=== PATIENT | female | born 1945 | race Hispanic/Latino ===

== ENCOUNTER 2018-06-30 12:12 | Emergency (ER) | payer SELFPAY ==
[2018-06-30 12:26] VITALS: RESP 18
[2018-06-30 13:10] LABS: URINE BILIRUBIN NEGATIVE (NEGATIVE); URINE BLOOD SMALL (NEGATIVE); URINE GLUCOSE (UA) 500 mg/dL (NEGATIVE); URINE LEUKOCYTE ESTERASE NEGATIVE Leu/uL (NEGATIVE); URINE PROTEIN TRACE mg/dL (<30 mg/dL)
[2018-06-30 13:11] LABS: BASO # 0.02 K/mm3 (0.0-2.0); BASO % 0.2 % (0.0-3.0); EOS % 0.4 % (1.5-5.0); HEMOGLOBIN 13.9 g/dL (12.0-16.0); LYMPH # 1.7 (1.2-3.4); LYMPH % 15.4 % (22.0-35.0); MEAN CORPUSCULAR HEMOGLOBIN 30.1 pg (25.0-35.0); MEAN CORPUSCULAR HGB CONC 33.8 g/dl (31.0-37.0); MONO # 0.5 (0.1-0.6); MONO % 4.8 % (1.0-6.0); RBC 4.62 10^6/uL (3.5-6.1); RED CELL DISTRIBUTION WIDTH 12.2 % (11.5-14.5); URINE COLOR YELLOW (YELLOW); WHITE BLOOD COUNT 11.1 10^3/uL (4.5-11.0)
--- NOTE | 2018-06-30 13:11 | ED PDOC ---
Arrival/HPI - General Chief Complaint: Abdominal Pain Time Seen by Provider: 06/30/18 12:35 Historian: Patient - History of Present Illness Narrative History of Present Illness (Text): 06/30/18 13:08 A 73 year old female, whose past medical history includes hypertension, recurring UTI, and hysterectomy, presents to the emergency department complaining of nausea, abdominal pain, and 2 episodes of vomiting starting this morning. Patient reports she went to [facility] and had Urinalysis performed, showing high glucose in urine, and fingerstick measurement performed there showed to be 301. Here in the ER, her fingerstick is currently 240 and still experiences nausea and has weakness. Patient denies any other complaints at this time. Time/Duration: Other (starting this morning) Symptom Onset: Sudden Symptom Course: Unchanged Past Medical History - Provider Review Nursing Documentation Reviewed: Yes - Travel History If Yes, travel location?: [facility] a month ago - Infectious Disease Hx of Infectious Diseases: None - Reproductive Menopause: No - Cardiac Hx Hypertension: Yes - Pulmonary Other/Comment: hysterectomy - Neurological Hx Neurological Disorder: No Hx Alzheimer's Disease: No - HEENT Hx HEENT Disorder: No - Renal Hx Renal Disorder: No Hx Dialysis: No - Endocrine/Metabolic Hx Endocrine Disorders: No - Hematological/Oncological Hx Blood Disorders: No - Genitourinary/Gynecological Hx Genitourinary Disorders: No - Psychiatric Hx Psychophysiologic Disorder: No Hx Substance Use: No Family/Social History - Physician Review Nursing Documentation Reviewed: Yes Family/Social History: No Known Family HX Smoking Status: Never Smoked Hx Alcohol Use: No Hx Substance Use: No Allergies/Home Meds Allergies/Adverse Reactions: Allergies No Known Allergies Allergy (Verified 06/30/18 12:46) Review of Systems - Physician Review All systems were reviewed & negative as marked: Yes - Review of Systems Constitutional: absent: Night Sweats Gastrointestinal: Abdominal Pain, Nausea, Vomiting (2 episodes) Physical Exam Vital Signs Reviewed: Yes Vital Signs Temp Pulse Resp BP Pulse Ox 06/30/18 12:20 98.7 F 89 18 144/81 98 06/30/18 12:13 85 18 97 Pulse: Regular Respiratory Rate: Normal Appearance: Positive for: Well-Appearing, Non-Toxic, Comfortable Pain Distress: None Mental Status: Positive for: Alert and Oriented X 3 - Systems Exam Head: Present: Atraumatic, Normocephalic Pupils: Present: PERRL Extroacular Muscles: Present: EOMI Conjunctiva: Present: Normal Mouth: Present: Moist Mucous Membranes Neck: Present: Normal Range of Motion. No: JVD Respiratory/Chest: Present: Clear to Auscultation, Good Air Exchange. No: Respiratory Distress, Accessory Muscle Use Cardiovascular: Present: Regular Rate and Rhythm, Normal S1, S2. No: Murmurs Abdomen: Present: Tenderness (bilateral lower quadrant tenderness). No: Distention, Peritoneal Signs Back: Present: Normal Inspection Upper Extremity: Present: Normal Inspection. No: Cyanosis, Edema Lower Extremity: Present: Normal Inspection. No: Edema Neurological: Present: GCS=15, CN II-XII Intact, Speech Normal Skin: Present: Warm, Dry, Normal Color. No: Rashes Psychiatric: Present: Alert, Oriented x 3, Normal Insight, Normal Concentration Medical Decision Making ED Course and Treatment: 06/30/18 13:11 Impression: 73 year old female with nausea, abdominal pain, and 2 episodes of vomiting. Differential Diagnoses: Abdominal pain rule out UTI vs. Diverticulitis vs. Abscess. Plan: -- Labs -- EKG -- IV Fluids -- Pepcid -- Zofran -- Abd/Pelvis CT Progress Notes: EKG shows to be 92 BPM at NSR with normal access. Progress note: The pt is feeling better and all labs and ct abd/pelvis are unremarkable. Pt can be discharged home. will follow up with her pcp. - Lab Interpretations I have reviewed the lab results: Yes - RAD Interpretation Radiology Orders: 06/30/18 12:46 ABD PELVIS PO & IV CONTRAST [CT] Stat - Medication Orders Current Medication Orders: Ondansetron HCl (Zofran Inj) 4 mg IVP STAT STA Stop: 06/30/18 13:07 Discontinued Medications Famotidine (Pepcid) 20 mg IVP STAT STA Stop: 06/30/18 12:47 - Scribe Statement The provider has reviewed the documentation as recorded by the Scribrodrigo Carballo All medical record entries made by the Scribe were at my direction and personally dictated by me. I have reviewed the chart and agree that the record accurately reflects my personal performance of the history, physical exam, medical decision making, and the department course for this patient. I have also personally directed, reviewed, and agree with the discharge instructions and disposition. Disposition/Present on Arrival - Present on Arrival Any Indicators Present on Arrival: No History of DVT/PE: No History of Uncontrolled Diabetes: No Urinary Catheter: No History of Decub. Ulcer: No History Surgical Site Infection Following: None - Disposition Have Diagnosis and Disposition been Completed?: Yes Diagnosis: Abdominal pain Disposition: HOME/ ROUTINE Disposition Time: 16:21 Patient Problems: Current Active Problems Problem Status Onset Abdominal pain Acute Condition: GOOD Additional Instructions: Follow up with your pcp in a few days and tylenol for pain. Prescriptions: Acetaminophen [Tylenol] 650 mg PO Q4 #15 capsule Referrals: [facility] at [facility] [Outside] - Follow up with primary [facility] at [facility] [Outside] - Follow up with primary [facility] at [place] [Outside] - Follow up with primary Forms: [facility] [employer] (Welsh)
[2018-06-30 13:12] LABS: URINE APPEARANCE CLEAR (CLEAR)
[2018-06-30 13:20] LABS: ALBUMIN 4.2 g/dL (3.0-4.8); ALT/SGPT 30 U/L (7-56); AMYLASE 86 U/L (35-125); AST/SGOT 39 U/L (14-36); BLOOD UREA NITROGEN 16 mg/dL (7-21); CALCIUM 9.5 mg/dL (8.4-10.5); GFR NON-AFRICAN AMERICAN > 60; INR 1.02; LIPASE 89 U/L (23-300); PARTIAL THROMBOPLASTIN TIME 31.8 Seconds (26.9-38.3); PROTHROMBIN TIME 11.5 SECONDS (9.4-12.5)
[2018-06-30 13:27] LABS: URINE BACTERIA MANY /hpf
[2018-06-30 13:28] LABS: URINE AMORPHOUS SEDIMENT FEW /hpf
[2018-06-30 13:32] LABS: TROPONIN I < 0.01 ng/mL
[2018-06-30] MEDS ORDERED: Iohexol 240 (50 ml) ONE (13:33)
[2018-06-30 14:29] VITALS: TEMP 98
[2018-06-30] MEDS ORDERED: Iohexol 350 MG/100 ML VIAL ONE (15:13)
--- NOTE | 2018-06-30 15:23 | CARD ---
APPROVED REPORT Date of service: 06/30/2018 EKG Measurement Heart [id number] NM 160P58 [id number] <Conclusion> Normal sinus rhythm Normal ECG
--- NOTE | 2018-06-30 15:50 | RAD ---
Date of service: 06/30/2018 HISTORY: Weakness and abdominal pain. COMPARISON: No prior. FINDINGS: LUNGS: No active pulmonary disease. PLEURA: No significant pleural effusion identified, no pneumothorax apparent. CARDIOVASCULAR: No atherosclerotic calcification present Normal. OSSEOUS STRUCTURES: No significant abnormalities. VISUALIZED UPPER ABDOMEN: Normal. OTHER FINDINGS: None. IMPRESSION: No active disease.
--- NOTE | 2018-06-30 16:02 | CT ---
Date of service: 06/30/2018 PROCEDURE: CT Abdomen and Pelvis with contrast HISTORY: Lower abdominal pain. COMPARISON: None. TECHNIQUE: Intravenous contrast dose: 96 cc Omnipaque 350. Radiation dose: Total exam DLP = 462.98 mGy-cm. This CT exam was performed using one or more of the following dose reduction techniques: Automated exposure control, adjustment of the mA and/or kV according to patient size, and/or use of iterative reconstruction technique. FINDINGS: LOWER THORAX: Unremarkable. LIVER: Unremarkable. No gross lesion or ductal dilatation. GALLBLADDER AND BILE DUCTS: Unremarkable. PANCREAS: Unremarkable. No gross lesion or ductal dilatation. SPLEEN: Unremarkable. ADRENALS: Unremarkable. No mass. KIDNEYS AND URETERS: Unremarkable. No hydronephrosis. No solid mass. VASCULATURE: Unremarkable. No aortic aneurysm. Atherosclerotic calcification and mural plaque present. Findings are seen throughout the aorta, non aneurysmal. BOWEL: Unremarkable. No obstruction. No gross mural thickening. APPENDIX: A normal appendix is not visible. No right lower quadrant or pelvic inflammatory findings. PERITONEUM: Unremarkable. No free fluid. No free air. LYMPH NODES: Unremarkable. No enlarged lymph nodes. BLADDER: Unremarkable. REPRODUCTIVE: Prior hysterectomy. BONES: No acute fracture. OTHER FINDINGS: None. IMPRESSION: No significant or acute findings to account for/ related to the clinical presentation. Additional benign and/or incidental findings described above.
[2018-06-30 16:35] VITALS: BP 131/75; PULSE 78; O2SAT 98
== END 2018-06-30 16:35 | disposition home or self-care (01) ==
LOC: ED 12:12
DX: R10.9 Unspecified abdominal pain (principal); I10 Essential (primary) hypertension
CPT/HCPCS: 71045; 74177; 80053; 81001; 82150; 82550; 83615; 83690; 84484; 85025; 85610; 85730; 93005; 96374; 96375; 99284; J2405; Q9966; Q9967

== ENCOUNTER 2018-08-22 15:42 | Outpatient (CLI) | payer OTHER | END 2018-08-22 15:43 | disposition home or self-care (01) | LOC: LAB 15:42 ==